=== PATIENT | female | born 1955 | race Caucasian/White ===

== ENCOUNTER → 2020-07-16 | Day surgery (SDC) | payer MEDICARE, BC ==
--- OUTSIDE RECORDS SUMMARY | 2020-07-10 15:15 | XMS REPORT ---
:1955 Author Organization [facility] Address [facility] [place] [address] [place] [id number] Care Team Providers Name Role Phone Rusty Portillo MD Attending Clinician Unavailable Allergies, Adverse Reactions, Alerts This patient has no known allergies or adverse reactions. Medications This patient has no known medications. Problems This patient has no known problems. Procedures Procedure Date / Time Performed Performing Clinician Devi e OFFICE/OUTPATIENT VISIT, [facility] 2020-04-03 11:00:00 OFFICE/OUTPATIENT VISIT, [facility] 2020-03-06 08:25:00 OFFICE/OUTPATIENT VISIT, [facility] 2020-02-21 14:05:00 Results This patient has no known results. Assessments Condition Name Status Diagnosis Date Treating Clinici an Unilateral primary osteoarthritis, right Active knee Chondromalacia patellae, right knee Active Edema, unspecified Active Pain in right knee Active Pain in right knee Active Unilateral primary osteoarthritis, right Active knee Chondromalacia patellae, right knee Active Edema, unspecified Active Unilateral primary osteoarthritis, right Active knee Unilateral primary osteoarthritis, left knee Active Pain in right knee Active Pain in left knee Active Encounters Start End Encounter Admission Attending Care Care Encounter Date/Time Date/Time Type Type Clinicians Facility Department ID 2020-04-03 2020-04-03 Outpatient Bandar JERNIGAN [facility] [id number] 11:00:00 11:00:00 [facility] [id number] \T\ Sports [id number] Medicine NB [id number] 2020-03-06 2020-03-06 Outpatient Bandar JERNIGAN [facility] F3 [id number] 08:25:00 08:25:00 [facility] [id number] \T\ Sports [id number] Medicine NB [id number] 2020-02-21 2020-02-21 Outpatient Bandar JERNIGAN [facility] [id number] 14:05:00 14:05:00 [facility] [id number] \T\ Sports [id number] [facility] [id number] Social History This patient has no known social history. Vital Signs This patient has no known vital signs.
[~2020-07-16] MED LIST: LIDOCAINE 1%/EPINEPHRINE INJ 20 ML VIAL ONE
--- NOTE | 2020-07-22 12:10 | WOMENS IMAGING REPORT ---
EXAM DESCRIPTION: STEREO BREAST BX; LEFT DIAGNOSTIC MAMMO W/CAD; BREAST SPECIMEN IMAGES COMPLETED DATE/TIME: 07/22/2020 10:13 am; 07/16/2020 12:24 pm; 07/22/2020 10:12 am REASON FOR STUDY: (R92.0)MAMMOGRAPHIC MICROCALCIFICATION FOUND ON DX IMAGING OF BRST; STEREO; R92.0 MAMMOGRAPHIC MICROCALCIFICATION FOUND ON DX IMAGING OF BRST D24.2 BENIGN NEOPLASM OF LEFT BREAST; R9 2.0 MAMMOGRAPHIC MICROCALCIFICATION FOUND ON DX IMAGING OF R92.0 MAMMOGRAPHIC MICROCALCIFICATION FO UND ON DX IMAGING OF COMPARISON: None. LIMITATIONS: None. PROCEDURE: Vacuum-assisted stereotactic-guided biopsy of the lesion in the left breast targeted and performed by Dr. Curiel, the operating surgeon. Procedure and post-procedure imaging interpreted b y a radiologist. Using stereotactic guidance, a vacuum-assisted core biopsy of the targeted lesion was performed. A B arrel clip was deployed at the biopsy site. Post procedure image reveals the clip at the biopsy site . TECHNIQUE: Images from the stereotactic unit acquired during the procedure. Specimen radiography performed. Yes. Post- procedure image acquired post-clip placement. Yes. Post procedure 2 view mammograms performed in the mammography suite for clip placement. Yes. FINDINGS: SPECIMEN RADIOGRAPH:Calcifications identified. POST PROCEDURE MAMMOGRAMS FOR MARKER PLACEMENT: Yes. POST PROCEDURE MAMMOGRAM: Clip is in expected location. No significant hematoma. PATHOLOGY: Sclerosing fibroadenoma. CONCORDANT: Yes. The operating surgeon was notified of the findings. IMPRESSION: SUCCESSFUL STEREOTACTIC-GUIDED BIOPSY OF LESION IN THE LEFT BREAST. BIOPSY RESULTS ARE CONCORDANT WITH IMAGING FINDINGS. FOLLOW-UP: PER SURGEON TECHNICAL DOCUMENTATION: JOB ID: [id number] 2010 [employer]- All Rights Reserved Reading location - IP/workstation name: REGULATORY [email or web address] COMPLIANCE [email or web address]
== END ==
LOC: RAD 07-09 10:06
PROVIDERS: ATTEND Surgery
DX: D24.2 Benign neoplasm of left breast (principal); R92.0 Mammographic microcalcification found on diagnostic imaging of breast
CPT/HCPCS: 88305 ×2; 88342; 19081; 77065; J3490

== ENCOUNTER → 2020-07-17 | Outpatient (CLI) | payer MEDICARE, BC ==
--- NOTE | 2020-07-22 09:07 | Discharge Summary ---
Discharge Summary (SDC) - Discharge Final Diagnosis: Microcalcifications left breast Date of Surgery: 07/22/20 Discharge Date: 07/22/20 Condition: Good Treatment or Instructions: Wear supportive bra; take Tylenol as needed pain. Follow-up with [facility], in 1 to 2 weeks. We will call her with pathology report. Referrals: JAVIER ALFONSO MD [Primary Care Provider] - Discharge Diet: As Tolerated Discharge Activity: Activity As Tolerated Home Care Assistance: None Needed Report the Following to Your Physician Immediately: Shortness of Breath, Increase in Pain, Fever over 101 Degrees
--- NOTE | 2020-07-22 09:17 | Operative Report ---
Operative Report DATE OF SURGERY: 07/22/20 PREOPERATIVE DIAGNOSIS: Abnormal microcalcifications left central breast POSTOPERATIVE DIAGNOSIS: Same OPERATION: 1. Stereotactically directed excisional myotomy core biopsies left breast. 2. Placement of clip marker. 3. Interpretation of intraprocedure mammography. 4. Interpretation of specimen radiograph SURGEON: JAVIER ALFONSO ANESTHESIA: Local TISSUE REMOVED OR ALTERED: Multiple cores sent to pathology COMPLICATIONS: None ESTIMATED BLOOD LOSS: Minimal INTRAOPERATIVE FINDINGS: See below PROCEDURE: The patient was taken from the visitors area to the stereotactic room in the radiology department where the left breast was placed into compression. The target microcalcifications were localized using a craniocaudal approach. + -15 degrees views confirmed the target right. With the left breast in compression, the surface of the exposed breast was prepped with Betadine and anesthetized with 1% plain lidocaine. A brooke was made in the skin with 11 blade and a mammotome advanced to the appropriate depth. Pre and post fire films showed good alignment between the mammotome and the microcalcifications. We now completed core biopsy of the target microcalcifications in a circumferential fashion. Specimens were adequate for submission. There were placed in a Dolores dish, and imaged with the specimen radiograph machine. Specimens contained microcalcifications. A clip marker was deployed in the biopsy cavity and post alignment images showed retention of the clip in the patient's left breast. The patient was taken out of compression, and gentle pressure was applied to the left breast. Patient tolerated procedure well, provided discharge instructions.
--- NOTE | 2020-07-22 12:10 | WOMENS IMAGING REPORT ---
EXAM DESCRIPTION: STEREO BREAST BX; LEFT DIAGNOSTIC MAMMO W/CAD; BREAST SPECIMEN IMAGES COMPLETED DATE/TIME: 07/22/2020 10:13 am; 07/16/2020 12:24 pm; 07/22/2020 10:12 am REASON FOR STUDY: (R92.0)MAMMOGRAPHIC MICROCALCIFICATION FOUND ON DX IMAGING OF BRST; STEREO; R92.0 MAMMOGRAPHIC MICROCALCIFICATION FOUND ON DX IMAGING OF BRST D24.2 BENIGN NEOPLASM OF LEFT BREAST; R9 2.0 MAMMOGRAPHIC MICROCALCIFICATION FOUND ON DX IMAGING OF R92.0 MAMMOGRAPHIC MICROCALCIFICATION FO UND ON DX IMAGING OF COMPARISON: None. LIMITATIONS: None. PROCEDURE: Vacuum-assisted stereotactic-guided biopsy of the lesion in the left breast targeted and performed by Dr. Curiel, the operating surgeon. Procedure and post-procedure imaging interpreted b y a radiologist. Using stereotactic guidance, a vacuum-assisted core biopsy of the targeted lesion was performed. A B arrel clip was deployed at the biopsy site. Post procedure image reveals the clip at the biopsy site . TECHNIQUE: Images from the stereotactic unit acquired during the procedure. Specimen radiography performed. Yes. Post- procedure image acquired post-clip placement. Yes. Post procedure 2 view mammograms performed in the mammography suite for clip placement. Yes. FINDINGS: SPECIMEN RADIOGRAPH:Calcifications identified. POST PROCEDURE MAMMOGRAMS FOR MARKER PLACEMENT: Yes. POST PROCEDURE MAMMOGRAM: Clip is in expected location. No significant hematoma. PATHOLOGY: Sclerosing fibroadenoma. CONCORDANT: Yes. The operating surgeon was notified of the findings. IMPRESSION: SUCCESSFUL STEREOTACTIC-GUIDED BIOPSY OF LESION IN THE LEFT BREAST. BIOPSY RESULTS ARE CONCORDANT WITH IMAGING FINDINGS. FOLLOW-UP: PER SURGEON TECHNICAL DOCUMENTATION: JOB ID: [id number] 2010 [employer]- All Rights Reserved Reading location - IP/workstation name: [email or web address]
== END ==
LOC: WI 10:11
PROVIDERS: ATTEND Surgery
DX: D24.2 Benign neoplasm of left breast (principal)
CPT/HCPCS: 76098